=== PATIENT | female | born 1995 | race Two or more races ===

== ENCOUNTER 2017-07-20 14:29 | Emergency (ER) | payer OTHER ==
[~2017-07-20] VITALS: Ht 165.1 cm; Wt 60.5 kg
[2017-07-20] MEDS ORDERED: IRON18TA2 PO (14:39)
[2017-07-20] MEDS ORDERED: PREN1CHW4 PO (14:39)
[2017-07-20 17:26] VITALS: BP 120/69
== END 2017-07-20 17:29 | disposition home or self-care (01) ==
LOC: M ED 14:29
DX: O99.89 Other specified diseases and conditions complicating pregnancy, childbirth and the puerperium (principal); M25.542 Pain in joints of left hand; Z3A.29 29 weeks gestation of pregnancy

== ENCOUNTER 2017-12-28 06:11 | Emergency (ER) | payer OTHER ==
[2017-12-28 07:58] LABS: INFLUENZA A AMPLIFICATION NEGATIVE (NEGATIVE); INFLUENZA B AMPLIFICATION NEGATIVE (NEGATIVE)
== END 2017-12-28 08:12 | disposition home or self-care (01) ==
LOC: M ED 06:11
DX: J06.9 Acute upper respiratory infection, unspecified (principal)
CPT/HCPCS: 87502